=== PATIENT | female | born 1965 | race Caucasian/White ===

== ENCOUNTER 2019-01-04 14:52 | Observation (INO) | payer BC ==
--- NOTE | 2019-01-04 15:09 | EDM.PDOC ---
ED HPI GENERAL MEDICAL PROBLEM - General Chief Complaint: Respiratory Problem Stated Complaint: SOB Time Seen by Provider: 01/04/19 15:01 Source of Information: Reports: Patient History Limitations: Reports: No Limitations - History of Present Illness INITIAL COMMENTS - FREE TEXT/NARRATIVE: 53-year-old female presents to the ED due to gradually worsening shortness of breath on minimal exertion. She feels achy all over her bones hurt. She feels lightheaded dizzy upon standing. She has a productive cough since waking the yard about a week ago. She feels this makes her feel even more short of breath. Complains of intermittent headaches and sinus congestion. She is also menstruating very heavily.. Started around December 18 and is continued to fall heavily on a daily basis with clots. has a history of thrombocytopenia. Shows 100 platelets checked for a period of time. She states cough is nonproductive. Smoker. No history of asthma. Feels generally weak and fatigued. In regards to. She's had 3 periods in the last 6 months all were heavier than normal and she would be considered perimenopausal. She has not followed up with gynecology in this regard. Onset: Gradual Onset Date: 12/21/18 (Hospital progressively more short of breath over the last 2 weeks and weak and tired.) Duration: Week(s):, Getting Worse Location: Reports: Generalized, Other (Headaches shortness of breath on minimal exertion.) Quality: Reports: Other Severity: Moderate (Dyspnea on minimal exertion) Improves with: Reports: Rest Worsens with: Reports: Movement Context: Denies: Activity (Exertion even slight walking without stairs makes her short of breath and lightheaded.), Exercise, Lifting, Sick Contact, Trauma, Other Associated Symptoms: Reports: Cough, Loss of Appetite, Malaise, Shortness of Breath, Weakness, Other (Dizzy and lightheaded with standing.). Denies: No Other Symptoms, Confusion, Chest Pain, cough w sputum, Diaphoresis ( Nonproductive.), Fever/Chills, Headaches, Nausea/Vomiting, Rash, Seizure, Syncope Treatments ONLINE COMMUNICATIONS MANAGER: Reports: Other (see below) (None.) - Related Data Allergies Allergy/AdvReac Type Severity Reaction Status Date / Time No Known Allergies Allergy Verified 01/04/19 14:56 Home Meds: Home Meds Cyclobenzaprine [Flexeril] 5 mg PO Q8H PRN #15 tab 01/23/18 [Rx] Eltrombopag Olamine [Promacta] 75 mg PO DAILY 01/23/18 [History] Escitalopram [Lexapro] 20 mg PO DAILY 01/23/18 [History] traMADol [Ultram] 50 mg PO Q8H PRN #15 tab 01/23/18 [Rx] Past Medical History Musculoskeletal History: Reports: Back Pain, Chronic Other Musculoskeletal History: left hand surgery Hematologic History: Reports: Anemia, Other (See Below) Other Hematologic History: thrombocytopennia - Infectious Disease History Infectious Disease History: Reports: Chicken Pox - Past Surgical History Female Surgical History: Reports: Tubal Ligation, Other (See Below) Social & Family History - Tobacco Use Smoking Status *Q: Current Every Day Smoker Years of Tobacco use: 30 Packs/Tins Daily: 0.5 - Caffeine Use Caffeine Use: Reports: Coffee, Soda - Recreational Drug Use Recreational Drug Use: No - Living Situation & Occupation Living situation: Reports: Occupation: Employed ED ROS GENERAL - Review of Systems Review Of Systems: See Below Constitutional: Reports: Malaise, Weakness, Fatigue, Decreased Appetite. Denies : Fever, Chills HEENT: Reports: Sinus Problem Respiratory: Reports: Shortness of Breath (Sinus congestion lately.), Cough, Other. Denies: Wheezing, Pleuritic Chest Pain, Sputum, Hemoptysis ( Nonproductive and minimal) Cardiovascular: Reports: Dyspnea on Exertion, Lightheadedness. Denies: No Symptoms, Chest Pain, Blood Pressure Problem, Claudication, Edema, Orthopnea ( No orthopnea or PND), Palpitations Endocrine: Reports: Fatigue (Getting worse.) GI/Abdominal: Reports: Decreased Appetite : Reports: Irregular Menses (Patient is perimenopausal currently suffering significant menorrhagia with the last period lasting 2-1/2 weeks heavy with clots. This is her third. In the last 6 months that is been quite heavy.) Musculoskeletal: Reports: No Symptoms Skin: Reports: No Symptoms Neurological: Reports: Dizziness, Headache, Weakness (Lightheaded with standing localized weakness), Other Psychiatric: Reports: Depression (On medications for depression which seemed to be helping.) Hematologic/Lymphatic: Reports: Other (Has a history of thrombocytopenia.) Immunologic: Reports: No Symptoms ED EXAM, GENERAL - Physical Exam Exam: See Below Exam Limited By: No Limitations General Appearance: Alert, WD/WN, No Apparent Distress, Other (Initial O2 sats were 92% but did climb to 100% when at rest. Temperature is 37.1 resting heart rate 1 12/m. Respiratory rate of 16. BP 118/75.) Eye Exam: Bilateral Eye: Normal Inspection (Peripheral margins are moderately pallid bilaterally.) Ears: Normal TMs Throat/Mouth: Other (Test was swelling of the medial and spared turbinates bilaterally without) Head: Atraumatic, Normocephalic ( nasal polyps.) Neck: Normal Inspection, Supple, Non-Tender, Full Range of Motion. No: Carotid Bruit, Lymphadenopathy (L), Lymphadenopathy (R) Respiratory/Chest: No Respiratory Distress, Lungs Clear, Normal Breath Sounds, No Accessory Muscle Use Cardiovascular: No Edema, No Gallop, No Murmur, No Rub, Tachycardia (Resting heart rate of 1 16/m at the bedside.) Peripheral Pulses: 2+: Posterior Tibial (L), Posterior Tibial (R), Dorsalis Pedis (L), Dorsalis Pedis (R) GI/Abdominal: Normal Bowel Sounds, Soft, Non-Tender, No Organomegaly, No Abnormal Bruit, No Mass, Pelvis Stable, Other (Only surgeries that of tubal ligation.) Back Exam: Normal Inspection, Full Range of Motion. No: CVA Tenderness (L), CVA Tenderness (R) Extremities: Normal Inspection, Normal Range of Motion, Non-Tender, No Pedal Edema Neurological: Alert, Oriented, CN II-XII Intact, Normal Cognition Psychiatric: Anxious Skin Exam: Warm, Dry, Intact, Normal Color, No Rash, Other (Patient is tanning and therefore obscures any pallor of the skin. Only her blood for margins are pallid) EKG INTERPRETATION EKG Date: 01/04/19 Time: 15:22 Rhythm: NSR Rate (Beats/Min): 75 [place]: Normal P-Wave: Present (Borderline short CA interval.) QRS: Other (Initial poor R-wave progression decreased voltage precordial leads due to thick chest.) ST-T: Normal QT: Normal EKG Interpretation Comments: ECG. Course - Vital Signs Last Recorded V/S: Last Vital Signs Temp 37.1 C 01/04/19 18:25 Pulse 78 01/04/19 18:25 Resp 16 01/04/19 18:25 BP 127/79 01/04/19 18:25 Pulse Ox 99 01/04/19 15:37 - Orders/Labs/Meds Orders: Active Orders 24 hr Category Date Time Status EKG Documentation Completion [RC] STAT Care 01/04/19 15:10 Active RT Aerosol Therapy [RC] ASDIRECTED Care 01/04/19 15:10 Active PACKED CELLS [RED BLOOD CELLS LP] [BBK] Stat Lab 01/04/19 15:58 Results TYPE AND SCREEN [BBK] Stat Lab 01/04/19 15:58 Results Dextrose 5%-0.9% NaCl [Dextrose 5%-Normal Saline] 1,000 Med 01/04/19 15:15 Active ml IV ASDIRECTED Magnesium Sulfate/Water [Magnesium Sulfate in Water Med 01/04/19 17:30 Active Premix] 2 gm Premix Bag 1 bag IV Q1H Transfuse PRBC [Transfuse Red Blood Cells] [COMM] Stat Oth 01/04/19 16:44 Ordered Medication Orders Dextrose/Sodium Chloride (Dextrose 5%-Normal Saline) 1,000 mls @ 500 mls/hr IV ASDIRECTED [facility] Last Admin: 01/04/19 15:22 Dose: 500 mls/hr Magnesium Sulfate 2 gm/ Premix 50 mls @ 25 mls/hr IV Q1H [facility] Stop: 01/04/19 19:29 Last Admin: 01/04/19 17:37 Dose: 25 mls/hr Sodium Chloride (Normal Saline) 250 mls @ 25 mls/hr IV ASDIRECTED [facility] Medroxyprogesterone Acetate (Provera) 10 mg PO BID [facility] Labs: Laboratory Tests 01/04/19 01/04/19 01/04/19 Range/Units 15:20 15:20 15:58 WBC 6.69 (3.98-10.04) K/mm3 RBC 1.56 L (3.98-5.22) M/mm3 Hgb 5.0 L* D (11.2-15.7) gm/dl Hct 17.0 L (34.1-44.9) % MCV 109.0 H D (79.4-94.8) fl MCH 32.1 (25.6-32.2) pg MCHC 29.4 L (32.2-35.5) g/dl RDW Std Deviation 67.1 H (36.4-46.3) fL Plt Count 21 L* (182-369) K/mm3 MPV 12.4 H (9.4-12.3) fl Neut % (Auto) 76.8 H (34.0-71.1) % Lymph % (Auto) 15.2 L (19.3-51.7) % Ross % (Auto) 7.5 (4.7-12.5) % Eos % (Auto) 0.1 L (0.7-5.8) Baso % (Auto) 0.1 (0.1-1.2) % Neut # (Auto) 5.13 (1.56-6.13) K/mm3 Lymph # (Auto) 1.02 L (1.18-3.74) K/mm3 Ross # (Auto) 0.50 H (0.24-0.36) K/mm3 Eos # (Auto) 0.01 L (0.04-0.36) K/mm3 Baso # (Auto) 0.01 (0.01-0.08) K/mm3 Manual Slide Review Abnormal smear Sodium 136 (136-145) mEq/L Potassium 3.9 (3.5-5.1) mEq/L Chloride 103 (98-107) mEq/L Carbon Dioxide 22 (21-32) mEq/L Anion Gap 14.9 (5-15) BUN 9 (7-18) mg/dL Creatinine 1.0 (0.55-1.02) mg/dL Est Cr Clr Drug Dosing 59.89 mL/min Estimated GFR (MDRD) 58 (>60) mL/min BUN/Creatinine Ratio 9.0 L (14-18) Glucose 122 H (74-106) mg/dL Calcium 8.4 L (8.5-10.1) mg/dL Magnesium 1.5 L (1.8-2.4) mg/dl Iron (50-170) ug/dL TIBC (100-400) ug/dL % Saturation (20-55) % Transferrin (202-364) mg/dL Ferritin (8-252) ng/ml Total Bilirubin 0.3 (0.2-1.0) mg/dL AST 15 (15-37) U/L ALT 20 (14-59) U/L Alkaline Phosphatase 52 (46-116) U/L C-Reactive Protein < 0.2 (<1.0) mg/dL NT-Pro-B Natriuret Pep 92 (0-125) pg/mL Total Protein 6.4 (6.4-8.2) g/dl Albumin 3.1 L (3.4-5.0) g/dl Globulin 3.3 gm/dL Albumin/Globulin Ratio 0.9 L (1-2) Blood Type Gel Antibody Screen Crossmatch 01/04/19 01/04/19 Range/Units 15:58 15:58 WBC (3.98-10.04) K/mm3 RBC (3.98-5.22) M/mm3 Hgb (11.2-15.7) gm/dl Hct (34.1-44.9) % MCV (79.4-94.8) fl MCH (25.6-32.2) pg MCHC (32.2-35.5) g/dl RDW Std Deviation (36.4-46.3) fL Plt Count (182-369) K/mm3 MPV (9.4-12.3) fl Neut % (Auto) (34.0-71.1) % Lymph % (Auto) (19.3-51.7) % Ross % (Auto) (4.7-12.5) % Eos % (Auto) (0.7-5.8) Baso % (Auto) (0.1-1.2) % Neut # (Auto) (1.56-6.13) K/mm3 Lymph # (Auto) (1.18-3.74) K/mm3 Ross # (Auto) (0.24-0.36) K/mm3 Eos # (Auto) (0.04-0.36) K/mm3 Baso # (Auto) (0.01-0.08) K/mm3 Manual Slide Review Sodium (136-145) mEq/L Potassium (3.5-5.1) mEq/L Chloride (98-107) mEq/L Carbon Dioxide (21-32) mEq/L Anion Gap (5-15) BUN (7-18) mg/dL Creatinine (0.55-1.02) mg/dL Est Cr Clr Drug Dosing mL/min Estimated GFR (MDRD) (>60) mL/min BUN/Creatinine Ratio (14-18) Glucose (74-106) mg/dL Calcium (8.5-10.1) mg/dL Magnesium (1.8-2.4) mg/dl Iron 35 L (50-170) ug/dL TIBC 286 (100-400) ug/dL % Saturation 12 L (20-55) % Transferrin 229 (202-364) mg/dL Ferritin 106 (8-252) ng/ml Total Bilirubin (0.2-1.0) mg/dL AST (15-37) U/L ALT (14-59) U/L Alkaline Phosphatase (46-116) U/L C-Reactive Protein (<1.0) mg/dL NT-Pro-B Natriuret Pep (0-125) pg/mL Total Protein (6.4-8.2) g/dl Albumin (3.4-5.0) g/dl Globulin gm/dL Albumin/Globulin Ratio (1-2) Blood Type O NEGATIVE Gel Antibody Screen Negative Crossmatch See Detail Meds: Medications Generic Name Dose Route Start Last Admin Trade Name Freq PRN Reason Stop Dose Admin Dextrose/Sodium Chloride 1,000 mls @ 500 mls/hr 01/04/19 15:15 01/04/19 15:22 Dextrose 5%-Normal Saline IV 500 mls/hr ASDIRECTED RHIANNON Administration Magnesium Sulfate 2 gm/ Premix 50 mls @ 25 mls/hr 01/04/19 17:30 01/04/19 17: 37 IV 01/04/19 19:29 25 mls/hr Q1H RHIANNON Administration Sodium Chloride 250 mls @ 25 mls/hr 01/04/19 18:00 Normal Saline IV ASDIRECTED R[facility]ANNON Medroxyprogesterone Acetate 10 mg 01/04/19 19:00 Provera PO BID RHIANNON Discontinued Medications Generic Name Dose Route Start Last Admin Trade Name Freq PRN Reason Stop Dose Admin Albuterol/Ipratropium 3 ml 01/04/19 15:10 01/04/19 15:37 Duoneb 3.0-0.5 Mg/3 Ml NEB 01/04/19 15:11 3 ml ONETIME ONE Administration - Radiology Interpretation Free Text/Narrative:: 53-year-old female presents the ED for evaluation of gradually worsening dyspnea over the last 2-3 weeks. This is associated the same time is very heavy menstrual bleeding or menorrhagia with periods lasting over 2 and half weeks with clots. She is considered perimenopausal at age 53. She's had 3 periods in the last 6 months however. All of them been fairly heavy. She has carries a history of thrombocytopenia. She has not had a plan to check for a period of time. She states that she seemed to do develop shortness of breath after raking leaves for a couple of days with congestion in her throat and gradually worsening dyspnea. Cough is nonproductive. She is a cigarette smoker. He has not noticed any wheezing or rattling. No associated fever or chills. She is weak when she does anything. Standing up gives her worsening headaches. He states all of her bone seem to ache. Clinically she is showing some signs of mild anemia likely with a hemoglobin of around 10. Resting heart rate was 102-1 16/m at the bedside. O2 sats when she entered her room where down to 92% but quickly came up to 100% at rest. Plan she will have a chest x-ray carried out and routine labs carried out . Suspect anemia is her major cause of current illness. - Re-Assessments/Exams Free Text/Narrative Re-Assessment/Exam: 01/04/19 16:38 Labs reveal a normal white count at 6.69. The auto differential shows 77% neutrophils. Hemoglobin is very low at 5.0 with hematocrit of 17. MCV is elevated 109.0. Platelet count is 21,000. Patient is known to suffer from chronic thrombocytopenia. She's had low platelet counts for greater than 5 years. Sodium is 136 with a potassium of 3.9 chloride is 102 bicarbonate 22. Anion gap is 14.9. BUN is 9 with a creatinine of 1.0. GFR is greater than 58. Glucose is 122 calcium is 8.4 magnesium low at 1.5. Liver function otherwise normal. C-reactive protein less than 0.2. Total protein is 6.4 with an albumin fraction of 3.1. This is slightly low.. Plan I will now order her serum iron ferritin and transferrin levels. He may be a candidate for intravenous dextran iron well she is here to improve her iron stores since she is so anemic. The menorrhagia is contributing to the chronic anemia and of course with a low platelet count she's not easily a candidate for surgery. Because she is perimenopausal I will discuss case with Dr. Galaviz with was automotive parts salesperson. She needs essentially an ultrasound of her uterus to give us his ideal shape size and leiomyomas. Some give us an idea about the endometrial stripe. Ideally she needs a endometrial biopsy at some point time to help determine the best approach to managing her menorrhagia. I discussed the case with automotive parts salesperson hospitalist Dr. Do and she will be admitted for observation overnight to receive 5 units of packed cells to improve her hemoglobin to be greater than 9. Her magnesium slightly low and I will therefore give her 2 g of magnesium intravenously as well as. 01/04/19 18:49 transvaginal ultrasound has been completed and Dr. Ellington is seen the patient and examined her in the ED. Appears that she probably does have a fibroid on the superior surface of the fundus of the uterus. Recommendation therefore be to have the uterus removed surgically. Of course this will have to be done in a larger facility where platelets are available and the patient was soap raised. In the meantime during admission we will start her on Provera 10 mg once daily in an effort to help reduce her bleeding per vagina. He will plan to do an endometrial biopsy in the next day or so. Departure - Departure Time of Disposition: 18:50 Disposition: Refer to Observation Condition: Fair Clinical Impression: Perimenopausal menorrhagia, Chronic idiopathic thrombocytopenia, Hypomagnesemia Anemia Qualifiers: Anemia type: iron deficiency Iron deficiency anemia type: chronic blood loss Qualified Code(s): D50.0 - Iron deficiency anemia secondary to blood loss ( chronic) - Discharge Information *PRESCRIPTION DRUG MONITORING PROGRAM REVIEWED*: Not Applicable *COPY OF PRESCRIPTION DRUG MONITORING REPORT IN PATIENT LISSET: Not Applicable - My Orders Last 24 Hours: My Active Orders 01/04/19 15:10 EKG Documentation Completion [RC] STAT RT Aerosol Therapy [RC] ASDIRECTED 01/04/19 15:15 Dextrose 5%-0.9% NaCl [Dextrose 5%-Normal Saline] 1,000 ml IV ASDIRECTED 01/04/19 15:58 PACKED CELLS [RED BLOOD CELLS LP] [BBK] Stat TYPE AND SCREEN [BBK] Stat 01/04/19 16:44 Transfuse PRBC [Transfuse Red Blood Cells] [COMM] Stat 01/04/19 17:30 Magnesium Sulfate/Water [Magnesium Sulfate in Water Premix] 2 gm Premix Bag 1 bag IV Q1H - Assessment/Plan Last 24 Hours: My Active Orders 01/04/19 15:10 EKG Documentation Completion [RC] STAT RT Aerosol Therapy [RC] ASDIRECTED 01/04/19 15:15 Dextrose 5%-0.9% NaCl [Dextrose 5%-Normal Saline] 1,000 ml IV ASDIRECTED 01/04/19 15:58 PACKED CELLS [RED BLOOD CELLS LP] [BBK] Stat TYPE AND SCREEN [BBK] Stat 01/04/19 16:44 Transfuse PRBC [Transfuse Red Blood Cells] [COMM] Stat 01/04/19 17:30 Magnesium Sulfate/Water [Magnesium Sulfate in Water Premix] 2 gm Premix Bag 1 bag IV Q1H
[2019-01-04] MEDS ORDERED: Albuterol/Ipratropium 3.0-0.5 MG/3 ML Neb Soln NEB ONE (15:10)
[2019-01-04] MEDS ORDERED: Dextrose 5%-0.9% NaCl 1,000 ML IV SCH (15:15)
--- NOTE | 2019-01-04 15:37 | CR ---
Chest: Portable view of the chest was obtained. Comparison: No prior chest x-rays are available. Heart size and mediastinum are normal. Lungs are clear. Bony structures are grossly intact. Impression: 1. Nothing acute is seen on portable chest x-ray. Diagnostic code #1
[2019-01-04] MEDS: Magnesium Sulfate/Water 2 GM in Premix Bag 1 BAG IV SCH ×2 (17:37→20:48)
--- NOTE | 2019-01-04 17:43 | US ---
Pelvic ultrasound: Multiple real-time images were obtained transvaginally. Comparison: No previous pelvic imaging is available. Findings: Uterus is anteverted. Endometrium is slightly heterogeneous and is increased in thickness at 2.6 cm. There is a fundal fibroid being noted which measures 2.7 cm in greatest measurement. No additional myometrial abnormality is identified. Right ovary shows a 2.0 cm simple cyst which is felt to be physiologic. Left ovary shows a hypoechoic area most likely due to collapsing hemorrhagic cyst measuring 2.8 cm. No free fluid is seen. Measurements: Uterus: Length 11.7 cm, AP height 6.5 cm, transverse width 6.3 cm Right ovary: 3.2 x 2.1 x 2.2 cm Left ovary: 4.1 x 2.8 x 3.0 cm Impression: 1. Heterogeneous endometrial stripe with increased thickness at 2.6 cm. 2. Hypoechoic area within the left ovary measuring 2.8 cm. As mentioned above, this most likely represents a collapsing hemorrhagic cyst although given the patient's age, recommend repeat study in 3-4 months to make sure this finding resolves. 3. Small fundal fibroid. Diagnostic code #3
[2019-01-04] MEDS ORDERED: Sodium Chloride 0.9% 250 ML IV SCH (18:00)
--- NOTE | 2019-01-04 20:00 | PCM.CONS ---
H&P History of Present Illness - General Date of Service: 01/04/19 Admit Problem/Dx: Admission Diagnosis/Problem Admission Diagnosis/Problem Perimenopausal menorrhagia Source of Information: Patient History Limitations: Reports: No Limitations - History of Present Illness Initial Comments - Free Text/Narative: Joselyn Escoto is a 53 year old female who presented to the ED for evaluation of shortness of breath and lightheadedness that had been getting progressively worse over the last several weeks. She reports that she started to have worsening of her lightheadedness today and had to sit down while she was combing her hair. She also has been having significant shortness of breath with ambulation. She reports that she has been having heavy menstrual bleeding for the last 2.5 weeks. LMP was 12/19/2018 and she has had ongoing bleeding since then. She reports that she is changing a regular tampon every 20-30 minutes at times and is also passing large blood clots that she says are the size of a baseball at times. She reports that she has been having increasing amount of cramping with her bleeding as well. She states that today the bleeding has slowed down and she is only having to change a tampon every 2-4 hours. She states that for the last 6 months her cycles have been somewhat irregular and are occurring every other month at this point. The 2 cycles prior to this were normal and only lasted about a week at a time. She also was not having is heavy bleeding with her cycles where she would only change a pad every couple of hours. Her bleeding was minimal with those previous cycles. She has not had any evaluation for this abnormal bleeding and has not been evaluated by a [facility] provider in a number of years. Onset of Symptoms: Reports: Gradual Symptom Onset Date: 12/10/18 Duration of Symptoms: Reports: Constant, Getting Worse Location: Reports: Pelvis Improves with: Reports: None - Related Data Allergies/Adverse Reactions: Allergies Allergy/AdvReac Type Severity Reaction Status Date / Time almond Allergy Hives Verified 01/04/19 19:03 poppyseed oil Allergy Hives Verified 01/04/19 19:04 Home Medications: Home Meds Escitalopram [Lexapro] 20 mg PO DAILY 01/23/18 [History] Past Medical History Musculoskeletal History: Reports: Back Pain, Chronic Other Musculoskeletal History: left hand surgery Hematologic History: Reports: Anemia, Other (See Below) Other Hematologic History: thrombocytopennia - Infectious Disease History Infectious Disease History: Reports: Chicken Pox - Past Surgical History Female Surgical History: Reports: Tubal Ligation, Other (See Below) Social & Family History - Tobacco Use Smoking Status *Q: Current Every Day Smoker Years of Tobacco use: 30 Packs/Tins Daily: 0.5 - Tobacco Core Measures Tobacco Use/Smoking Within Last 30 Days: Yes Smoking Frequency Within Last 30 Days: Reports: Five or More Cigarettes Per Day Desires Tobacco Cessation Medication: Refuses FDA Approved Med - Caffeine Use Caffeine Use: Reports: Coffee, Soda - Alcohol Use Alcohol Use History: Yes - Recreational Drug Use Recreational Drug Use: No - Living Situation & Occupation Living situation: Reports: Occupation: Employed H&P Review of Systems - Review of Systems: Review Of Systems: See Below General: Reports: Weakness, Fatigue Pulmonary: Reports: Shortness of Breath Cardiovascular: Denies: Chest Pain, Palpitations, Dyspnea on Exertion, Orthopnea Gastrointestinal: Denies: Abdominal Pain, Bloody Stool, Constipation, Diarrhea Genitourinary: Reports: Other (Abnormal uterine bleeding with menorrhagia and dysmenorrhea). Denies: Dysuria, Frequency, Burning, Pain, Urgency Exam - Exam Exam: See Below - Vital Signs Vital Signs: Last Vital Signs Temp 37.1 C 01/04/19 18:25 Pulse 78 01/04/19 18:25 Resp 16 01/04/19 18:25 BP 127/79 01/04/19 18:25 Pulse Ox 99 01/04/19 15:37 Weight: 81.647 kg - Exam General: Alert, Oriented HEENT: Conjunctiva Clear, EOMI Neck: Supple, Trachea Midline Lungs: Normal Respiratory Effort Cardiovascular: Regular Rate GI/Abdominal Exam: Soft, Non-Tender, No Distention. No: Guarding, Rigid, Rebound (Female) Exam: Normal External Exam, Enlarged Uterus (5-6 week size, anteverted, fundal fibroid present on bimanual exam.), Vaginal Bleeding (Small amount on bimanual exam). No: Adnexal Mass, Adnexal Tenderness, Uterine Tenderness Extremities: No Pedal Edema Skin: Warm, Dry, Intact Psychiatric: Alert, Normal Affect, Normal Mood - Patient Data Lab Results Last 24 hrs: Laboratory Results - last 24 hr 10/01/04/19 01/04/19 Range/Units 15:20 15:20 15:58 WBC 6.69 (3.98-10.04) K/mm3 RBC 1.56 L (3.98-5.22) M/mm3 Hgb 5.0 L* D (11.2-15.7) gm/dl Hct 17.0 L (34.1-44.9) % MCV 109.0 H D (79.4-94.8) fl MCH 32.1 (25.6-32.2) pg MCHC 29.4 L (32.2-35.5) g/dl RDW Std Deviation 67.1 H (36.4-46.3) fL Plt Count 21 L* (182-369) K/mm3 MPV 12.4 H (9.4-12.3) fl Neut % (Auto) 76.8 H (34.0-71.1) % Lymph % (Auto) 15.2 L (19.3-51.7) % [place] % (Auto) 7.5 (4.7-12.5) % Eos % (Auto) 0.1 L (0.7-5.8) Baso % (Auto) 0.1 (0.1-1.2) % Neut # (Auto) 5.13 (1.56-6.13) K/mm3 Lymph # (Auto) 1.02 L (1.18-3.74) K/mm3 [place] # (Auto) 0.50 H (0.24-0.36) K/mm3 Eos # (Auto) 0.01 L (0.04-0.36) K/mm3 Baso # (Auto) 0.01 (0.01-0.08) K/mm3 Manual Slide Review Abnormal smear Sodium 136 (136-145) mEq/L Potassium 3.9 (3.5-5.1) mEq/L Chloride 103 (98-107) mEq/L Carbon Dioxide 22 (21-32) mEq/L Anion Gap 14.9 (5-15) BUN 9 (7-18) mg/dL Creatinine 1.0 (0.55-1.02) mg/dL Est Cr Clr Drug Dosing 59.89 mL/min Estimated GFR (MDRD) 58 (>60) mL/min BUN/Creatinine Ratio 9.0 L (14-18) Glucose 122 H (74-106) mg/dL Calcium 8.4 L (8.5-10.1) mg/dL Magnesium 1.5 L (1.8-2.4) mg/dl Iron (50-170) ug/dL TIBC (100-400) ug/dL % Saturation (20-55) % Transferrin (202-364) mg/dL Ferritin (8-252) ng/ml Total Bilirubin 0.3 (0.2-1.0) mg/dL AST 15 (15-37) U/L ALT 20 (14-59) U/L Alkaline Phosphatase 52 (46-116) U/L C-Reactive Protein < 0.2 (<1.0) mg/dL NT-Pro-B Natriuret Pep 92 (0-125) pg/mL Total Protein 6.4 (6.4-8.2) g/dl Albumin 3.1 L (3.4-5.0) g/dl Globulin 3.3 gm/dL Albumin/Globulin Ratio 0.9 L (1-2) Blood Type Gel Antibody Screen Crossmatch 01/04/19 01/04/19 Range/Units 15:58 15:58 WBC (3.98-10.04) K/mm3 RBC (3.98-5.22) M/mm3 Hgb (11.2-15.7) gm/dl Hct (34.1-44.9) % MCV (79.4-94.8) fl MCH (25.6-32.2) pg MCHC (32.2-35.5) g/dl RDW Std Deviation (36.4-46.3) fL Plt Count (182-369) K/mm3 MPV (9.4-12.3) fl Neut % (Auto) (34.0-71.1) % Lymph % (Auto) (19.3-51.7) % [place] % (Auto) (4.7-12.5) % Eos % (Auto) (0.7-5.8) Baso % (Auto) (0.1-1.2) % Neut # (Auto) (1.56-6.13) K/mm3 Lymph # (Auto) (1.18-3.74) K/mm3 [place] # (Auto) (0.24-0.36) K/mm3 Eos # (Auto) (0.04-0.36) K/mm3 Baso # (Auto) (0.01-0.08) K/mm3 Manual Slide Review Sodium (136-145) mEq/L Potassium (3.5-5.1) mEq/L Chloride (98-107) mEq/L Carbon Dioxide (21-32) mEq/L Anion Gap (5-15) BUN (7-18) mg/dL Creatinine (0.55-1.02) mg/dL Est Cr Clr Drug Dosing mL/min Estimated GFR (MDRD) (>60) mL/min BUN/Creatinine Ratio (14-18) Glucose (74-106) mg/dL Calcium (8.5-10.1) mg/dL Magnesium (1.8-2.4) mg/dl Iron 35 L (50-170) ug/dL TIBC 286 (100-400) ug/dL % Saturation 12 L (20-55) % Transferrin 229 (202-364) mg/dL Ferritin 106 (8-252) ng/ml Total Bilirubin (0.2-1.0) mg/dL AST (15-37) U/L ALT (14-59) U/L Alkaline Phosphatase (46-116) U/L C-Reactive Protein (<1.0) mg/dL NT-Pro-B Natriuret Pep (0-125) pg/mL Total Protein (6.4-8.2) g/dl Albumin (3.4-5.0) g/dl Globulin gm/dL Albumin/Globulin Ratio (1-2) Blood Type O NEGATIVE Gel Antibody Screen Negative Crossmatch See Detail Result Diagrams: 01/04/19 15:20 01/04/19 15:58 Imaging Impressions Last 24 hrs: Transvaginal ultrasound Findings: Uterus is anteverted. The endometrium is slightly heterogeneous and is increased in thickness at 2.6 cm. There is a fundal fibroid being noted which measures 2.7 cm in greatest measurement. No additional myometrial abnormality is identified. Next and right ovary shows a 2.0 cm simple cyst which is felt to be physiologic. The left ovary shows a hypoechoic area most likely due to collapsing hemorrhagic cyst measuring 2.8 cm. No free fluid seen. Measurements Uterus: Length 11.7 cm, AP height 6.5 cm, transverse with 6.3 cm Right ovary: 3.2 x 2.1 x 2.2 cm Left ovary: 4.1 x 2.8 x 3.0 cm Impression: 1. Heterogeneous endometrial stripe with increased thickness at 2.6 and a venous 2. Hypoechoic area within the left ovary measuring 2.8 cm. As mentioned above , this most likely represents a collapsing hemorrhagic cyst although given the patient's age, recommend repeat study in 3-4 months to make sure this finding resolves. 3. A small fundal fibroid. Consult PN Assessment/Plan Procedures: Procedures AG DETECT NOS IA MULT (02/22/16) ANTINUCLEAR ANTIBODIES (01/16/16) ASSAY OF FERRITIN (12/07/15) ASSAY OF IRON (02/22/16) ASSAY OF TRANSFERRIN (02/22/16) ASSAY THYROID STIM HORMONE (12/07/15) AUTOMATED PLATELET COUNT (01/17/16) C DIFF AMPLIFIED PROBE (12/08/15) C-REACTIVE PROTEIN (02/22/16) COMPLETE CBC AUTOMATED (02/28/16) COMPLETE CBC W/AUTO DIFF WBC (02/22/16) COMPREHEN METABOLIC PANEL (02/22/16) CRYPTOSPORIDIUM AG IA (12/08/15) CT HEAD/BRAIN W/O DYE (02/22/16) CT NECK SPINE W/O DYE (02/22/16) EMERGENCY DEPT VISIT (01/23/18) EMERGENCY DEPT VISIT (02/22/16) GIARDIA AG IA (12/08/15) HELICOBACTER PYLORI ANTIBODY (12/07/15) LEUKOCYTE ASSESSMENT FECAL (12/08/15) OCCULT BLD FECES 1-3 TESTS (12/08/15) ROUTINE VENIPUNCTURE (02/28/16) STOOL CULTR AEROBIC BACT EA (12/08/15) THER/PROPH/DIAG INJ SC/IM (01/23/18) VANOMYCIN DNA AMP PROBE (12/08/15) X-RAY EXAM L-S SPINE 2/3 VWS (01/23/18) X-RAY EXAM OF PELVIS (01/23/18) (1) Anemia SNOMED Code(s): 334884567 Code(s): D64.9 - ANEMIA, UNSPECIFIED Current Visit: Yes Qualifiers: Anemia type: iron deficiency Iron deficiency anemia type: chronic blood loss Qualified Code(s): D50.0 - Iron deficiency anemia secondary to blood loss (chronic) (2) Chronic idiopathic thrombocytopenia SNOMED Code(s): 37809079 Code(s): D69.3 - IMMUNE THROMBOCYTOPENIC PURPURA Current Visit: Yes (3) Perimenopausal menorrhagia SNOMED Code(s): 061183082, 560066901 Code(s): N92.4 - EXCESSIVE BLEEDING IN THE PREMENOPAUSAL PERIOD Current Visit: Yes Problem List Initiated/Reviewed/Updated: Yes My Orders Last 24 Hours: My Active Orders 01/04/19 21:00 medroxyPROGESTERone [Provera] 10 mg PO BID Requesting Provider: Zoltan Preciado MD Date Consult Requested: 01/04/19 Reason for Consult: Abnormal uterine bleeding with severe anemia Patient History Reviewed: Yes Admission H&P Reviewed: Yes Consult Result/Summary:: * Patient with symptomatic anemia with a hemoglobin of 5.0 in the setting of abnormal uterine bleeding with menorrhagia and dysmenorrhea. * Patient is likely in a perimenopausal state given her irregular menstrual cycles that are occurring every other month at [facility] time. * Patient is being admitted for blood transfusion given her significant symptomatic anemia * Patient had transvaginal ultrasound done today that showed uterine fibroid measuring 2.7 cm in greatest diameter. It is possible that this could be causing her abnormal bleeding. Patient also had thickened endometrial stripe at 2.6 cm. * Due to thickened endometrial stripe patient will need a endometrial biopsy and recommended for this to be done as an outpatient. Patient reports that she is also not had a Pap smear performed in a number of years and would recommend for this to be done at that time as well. * Patient should be treated with Provera 10 mg orally twice daily and could consider increasing dose to 20 mg orally twice daily to control her bleeding. Due to patient's history of tobacco use with 0.5 PPD at this time I would not recommend use of estrogen or estrogen containing medications due to increased risk of DVT. * Discussed with patient that because of this fibroid her options for control may be somewhat limited. Discussed that options could include ongoing hormonal management versus endometrial ablation versus definitive surgical management with hysterectomy. 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 Patient could consider also having a uterine artery embolization however this procedure would not be able to be performed at our facility. Patient would likely need to have her hysterectomy performed at a facility with higher acuity care and larger blood bank available because of her thrombocytopenia as well. Thank you for allowing me to participate in this patient's care. If there is any additional recommendations needed please feel free to contact me as needed. Guillaume Ellington M.D. 8:16 PM 01/04/2019 Notified Requestor: Yes Time Spent (in minutes): 45
[2019-01-04] MEDS ORDERED: Ondansetron 4 MG/2 ML SDV IV PRN (20:15)
[2019-01-04] MEDS ORDERED: Temazepam 7.5 MG Cap PO PRN (20:15)
--- NOTE | 2019-01-04 20:25 | PCM.HP.2 ---
H&P History of Present Illness - General Date of Service: 01/04/19 Admit Problem/Dx: Admission Diagnosis/Problem Admission Diagnosis/Problem Perimenopausal menorrhagia - History of Present Illness Initial Comments - Free Text/Narative: 53-year-old perimenopausal female with a history of ITP treated with eltrombopag in the past presents to the emergency room with complaints of chest burning, increased fatigue, weakness, and headache over the last week. Today it worsened and she developed palpitations and shortness of breath. She was unable to stand and [place] is a fatigue and had difficulty walking through the store for 5 minutes. Last menstrual period started 12/19/2018. She states she has been on her menstrual cycle for approximately 2-1/2 weeks and it has been unusually heavy. She is changing a regular tampon every 20-30 minutes is also passing large blood clots. She also has had increasing cramping and bleeding as well. She has had some decreased bleeding today and has only gone through a tampon every 2-4 hours. She is only had a menstrual cycle approximately 3 times over the last 6 months in the previous 2 cycles were normal and last approximately 1 week. She has not been evaluated by [facility]. In the emergency room she was found to have a hemoglobin of 5.0. Her platelet count was 21,000. I spoke with Dr. Hassan her automotive brake specialist who stated that that is not a bad platelet count for her since she has been off of her eltrombopag. She states that a couple of months ago her platelet count was 14,000. Other pertinent positives were magnesium 1.5, iron 35, percent saturation 12, total iron binding capacity of 286. She had a pelvic ultrasound performed and the first unit of blood was started. - Related Data Allergies/Adverse Reactions: Allergies Allergy/AdvReac Type Severity Reaction Status Date / Time almond Allergy Hives Verified 01/04/19 19:03 poppyseed oil Allergy Hives Verified 01/04/19 19:04 Home Medications: Home Meds Escitalopram [Lexapro] 20 mg PO DAILY 01/23/18 [History] Iron Polysaccharides Complex [Ferrex 150] 130 mg PO DAILY 01/04/19 [History] Multivitamin with Minerals [Multiple Vitamin] 1 tab PO DAILY 01/04/19 [History] Past Medical History Respiratory History: Reports: Bronchitis, Recurrent Other OB/BYN History: tubes tied, normal , abnormal periods entire life Musculoskeletal History: Reports: Back Pain, Chronic Other Musculoskeletal History: left hand surgery Psychiatric History: Reports: Anxiety Hematologic History: Reports: Anemia, Other (See Below) Other Hematologic History: thrombocytopennia - Infectious Disease History Infectious Disease History: Reports: Chicken Pox - Past Surgical History Female Surgical History: Reports: Tubal Ligation, Other (See Below) Social & Family History - Family History Family Medical History: Noncontributory - Tobacco Use Smoking Status *Q: Current Every Day Smoker Years of Tobacco use: 30 Packs/Tins Daily: 0.5 Second Hand Smoke Exposure: No - Caffeine Use Caffeine Use: Reports: Coffee, Soda Other Caffeine Use: 1 cup/day - Recreational Drug Use Recreational Drug Use: No - Living Situation & Occupation Living situation: Reports: Occupation: Employed H&P Review of Systems - Review of Systems: Review Of Systems: ROS reveals no pertinent complaints other than HPI. Exam - Exam Exam: See Below - Vital Signs Vital Signs: Last Vital Signs Temp 98.8 F 01/04/19 18:25 Pulse 78 01/04/19 18:25 Resp 16 01/04/19 18:25 BP 127/79 01/04/19 18:25 Pulse Ox 99 01/04/19 15:37 Weight: 180 lb - Exam Quality Assessment: No: Supplemental Oxygen General: Alert, Oriented, 4 HEENT: Conjunctiva Clear, EACs Clear, EOMI, Hearing Intact, Mucosa Moist & [place] , Nares Patent, Normal Nasal Septum, Posterior Pharynx Clear, TMs Clear, Other ( Conjunctiva pale), PERRLA Neck: Supple, Trachea Midline, 2 Lungs: Clear to Auscultation, Normal Respiratory Effort Cardiovascular: Regular Rate, Regular Rhythm GI/Abdominal Exam: Normal Bowel Sounds, Soft, Non-Tender, No Organomegaly, No Distention, No Abnormal Bruit, No Mass Extremities: Normal Inspection, Normal Range of Motion, Non-Tender, No Pedal Edema, Normal Capillary Refill Skin: Warm, Dry, Intact Neuro Extensive - Mental Status: Alert, Oriented x3, Normal Mood/Affect, Normal Cognition, Memory Intact Neuro Extensive - Motor, Sensory, Reflexes: CN II-XII Intact Psychiatric: Alert, Normal Affect, Normal Mood - Patient Data Lab Results Last 24 hrs: Laboratory Results - last 24 hr 01/04/19 01/04/19 01/04/19 Range/Units 15:20 15:20 15:58 WBC 6.69 (3.98-10.04) K/mm3 RBC 1.56 L (3.98-5.22) M/mm3 Hgb 5.0 L* D (11.2-15.7) gm/dl Hct 17.0 L (34.1-44.9) % MCV 109.0 H D (79.4-94.8) fl MCH 32.1 (25.6-32.2) pg MCHC 29.4 L (32.2-35.5) g/dl RDW Std Deviation 67.1 H (36.4-46.3) fL Plt Count 21 L* (182-369) K/mm3 MPV 12.4 H (9.4-12.3) fl Neut % (Auto) 76.8 H (34.0-71.1) % Lymph % (Auto) 15.2 L (19.3-51.7) % [place] % (Auto) 7.5 (4.7-12.5) % Eos % (Auto) 0.1 L (0.7-5.8) Baso % (Auto) 0.1 (0.1-1.2) % Neut # (Auto) 5.13 (1.56-6.13) K/mm3 Lymph # (Auto) 1.02 L (1.18-3.74) K/mm3 [place] # (Auto) 0.50 H (0.24-0.36) K/mm3 Eos # (Auto) 0.01 L (0.04-0.36) K/mm3 Baso # (Auto) 0.01 (0.01-0.08) K/mm3 Manual Slide Review Abnormal smear Sodium 136 (136-145) mEq/L Potassium 3.9 (3.5-5.1) mEq/L Chloride 103 (98-107) mEq/L Carbon Dioxide 22 (21-32) mEq/L Anion Gap 14.9 (5-15) BUN 9 (7-18) mg/dL Creatinine 1.0 (0.55-1.02) mg/dL Est Cr Clr Drug Dosing 59.89 mL/min Estimated GFR (MDRD) 58 (>60) mL/min BUN/Creatinine Ratio 9.0 L (14-18) Glucose 122 H (74-106) mg/dL Calcium 8.4 L (8.5-10.1) mg/dL Magnesium 1.5 L (1.8-2.4) mg/dl Iron (50-170) ug/dL TIBC (100-400) ug/dL % Saturation (20-55) % Transferrin (202-364) mg/dL Ferritin (8-252) ng/ml Total Bilirubin 0.3 (0.2-1.0) mg/dL AST 15 (15-37) U/L ALT 20 (14-59) U/L Alkaline Phosphatase 52 (46-116) U/L C-Reactive Protein < 0.2 (<1.0) mg/dL NT-Pro-B Natriuret Pep 92 (0-125) pg/mL Total Protein 6.4 (6.4-8.2) g/dl Albumin 3.1 L (3.4-5.0) g/dl Globulin 3.3 gm/dL Albumin/Globulin Ratio 0.9 L (1-2) Blood Type Gel Antibody Screen Crossmatch 01/04/19 01/04/19 Range/Units 15:58 15:58 WBC (3.98-10.04) K/mm3 RBC (3.98-5.22) M/mm3 Hgb (11.2-15.7) gm/dl Hct (34.1-44.9) % MCV (79.4-94.8) fl MCH (25.6-32.2) pg MCHC (32.2-35.5) g/dl RDW Std Deviation (36.4-46.3) fL Plt Count (182-369) K/mm3 MPV (9.4-12.3) fl Neut % (Auto) (34.0-71.1) % Lymph % (Auto) (19.3-51.7) % [place] % (Auto) (4.7-12.5) % Eos % (Auto) (0.7-5.8) Baso % (Auto) (0.1-1.2) % Neut # (Auto) (1.56-6.13) K/mm3 Lymph # (Auto) (1.18-3.74) K/mm3 [place] # (Auto) (0.24-0.36) K/mm3 Eos # (Auto) (0.04-0.36) K/mm3 Baso # (Auto) (0.01-0.08) K/mm3 Manual Slide Review Sodium (136-145) mEq/L Potassium (3.5-5.1) mEq/L Chloride (98-107) mEq/L Carbon Dioxide (21-32) mEq/L Anion Gap (5-15) BUN (7-18) mg/dL Creatinine (0.55-1.02) mg/dL Est Cr Clr Drug Dosing mL/min Estimated GFR (MDRD) (>60) mL/min BUN/Creatinine Ratio (14-18) Glucose (74-106) mg/dL Calcium (8.5-10.1) mg/dL Magnesium (1.8-2.4) mg/dl Iron 35 L (50-170) ug/dL TIBC 286 (100-400) ug/dL % Saturation 12 L (20-55) % Transferrin 229 (202-364) mg/dL Ferritin 106 (8-252) ng/ml Total Bilirubin (0.2-1.0) mg/dL AST (15-37) U/L ALT (14-59) U/L Alkaline Phosphatase (46-116) U/L C-Reactive Protein (<1.0) mg/dL NT-Pro-B Natriuret Pep (0-125) pg/mL Total Protein (6.4-8.2) g/dl Albumin (3.4-5.0) g/dl Globulin gm/dL Albumin/Globulin Ratio (1-2) Blood Type O NEGATIVE Gel Antibody Screen Negative Crossmatch See Detail Result Diagrams: 01/04/19 15:20 01/04/19 15:58 Imaging Impressions Last 24 hrs: Transvaginal ultrasound Findings: Uterus is anteverted. The endometrium is slightly heterogeneous and is increased in thickness at 2.6 cm. There is a fundal fibroid being noted which measures 2.7 cm in greatest measurement. No additional myometrial abnormality is identified. Next and right ovary shows a 2.0 cm simple cyst which is felt to be physiologic. The left ovary shows a hypoechoic area most likely due to collapsing hemorrhagic cyst measuring 2.8 cm. No free fluid seen. Measurements Uterus: Length 11.7 cm, AP height 6.5 cm, transverse with 6.3 cm Right ovary: 3.2 x 2.1 x 2.2 cm Left ovary: 4.1 x 2.8 x 3.0 cm Impression: 1. Heterogeneous endometrial stripe with increased thickness at 2.6 and a venous 2. Hypoechoic area within the left ovary measuring 2.8 cm. As mentioned above , this most likely represents a collapsing hemorrhagic cyst although given the patient's age, recommend repeat study in 3-4 months to make sure this finding resolves. 3. A small fundal fibroid. EKG INTERPRETATION EKG Interpretation Comments: ECG: Normal sinus rhythm with ventricular rate of 75 bpm. Normal axis without deviation. Poor R-wave progression but otherwise normal ECG. Problem List Initiated/Reviewed/Updated: Yes Orders Last 24hrs: Active Orders 24 hr Category Date Time Status Admission Status [Patient Status] [ADT] Routine ADT 01/04/19 17:22 Active EKG Documentation Completion [RC] STAT Care 01/04/19 15:10 Active Notify Provider Consults [RC] ASDIRECTED Care 01/04/19 18:55 Active Oxygen Therapy [RC] PRN Care 01/04/19 20:15 Ordered RT Aerosol Therapy [RC] ASDIRECTED Care 01/04/19 15:10 Active Up ad Latoya [RC] ASDIRECTED Care 01/04/19 20:15 Ordered VTE/DVT Education [RC] PER UNIT ROUTINE Care 01/04/19 20:15 Ordered Vital Signs [RC] ASDIRECTED Care 01/04/19 20:15 Ordered Consult to Physician [CONS] Routine Cons 01/04/19 18:51 Active Regular Diet [DIET] Diet 01/04/19 Dinner Ordered CBC WITH AUTO DIFF [HEME] AM Lab 01/05/19 05:11 Ordered COMPREHENSIVE METABOLIC PN,CMP [CHEM] AM Lab 01/05/19 05:11 Ordered MAGNESIUM [CHEM] AM Lab 01/05/19 05:11 Ordered PACKED CELLS [RED BLOOD CELLS LP] [BBK] Stat Lab 01/04/19 15:58 Results TYPE AND SCREEN [BBK] Stat Lab 01/04/19 15:58 Results Acetaminophen [Tylenol] Med 01/04/19 20:15 Ordered 650 mg PO Q4H PRN Dextrose 5%-0.9% NaCl [Dextrose 5%-Normal Saline] 1,000 Med 01/04/19 15:15 Active ml IV ASDIRECTED Escitalopram Med 01/05/19 09:00 Ordered 20 mg PO DAILY Ondansetron [Zofran] Med 01/04/19 20:15 Ordered 4 mg IV Q4H PRN Sodium Chloride 0.9% [Normal Saline] 250 ml Med 01/04/19 18:00 Active IV ASDIRECTED Temazepam [Restoril] Med 01/04/19 20:15 Ordered 7.5 mg PO BEDTIME PRN medroxyPROGESTERone [Provera] Med 01/04/19 21:00 Active 10 mg PO BID Transfuse PRBC [Transfuse Red Blood Cells] [COMM] Stat Oth 01/04/19 16:44 Ordered Resuscitation Status Routine Resus Stat 01/04/19 19:04 Ordered Medication Orders Acetaminophen (Tylenol) 650 mg PO Q4H PRN PRN Reason: Pain (Mild 1-3)/fever Citalopram Hydrobromide (Celexa) 40 mg PO DAILY [facility] Dextrose/Sodium Chloride (Dextrose 5%-Normal Saline) 1,000 mls @ 500 mls/hr IV ASDIRECTED [facility] Last Admin: 01/04/19 15:22 Dose: 500 mls/hr Sodium Chloride (Normal Saline) 250 mls @ 25 mls/hr IV ASDIRECTED [facility] Medroxyprogesterone Acetate (Provera) 10 mg PO BID [facility] Ondansetron HCl (Zofran) 4 mg IV Q4H PRN PRN Reason: Nausea/Vomiting Temazepam (Restoril) 7.5 mg PO BEDTIME PRN PRN Reason: Sleep Assessment/Plan Comment:: Assessment * 53-year-old perimenopausal female with poorly controlled ITP presents to the emergency room with significant blood loss anemia. * HB 5.0 * Menorrhagia * ITP - platelets 21,000 * Non compliance with eltrombopag per hematology Plan * Refer to Medical floor for observation * Give 3 units PRBC overnight and recheck CBC in the AM * Dr. Ellington in [facility] consulted. * Recommendations: * Patient with symptomatic anemia with a hemoglobin of 5.0 in the setting of abnormal uterine bleeding with menorrhagia and dysmenorrhea. * Patient is likely in a perimenopausal state given her irregular menstrual cycles that are occurring every other month at ths time. * Patient is being admitted for blood transfusion given her significant symptomatic anemia * Patient had transvaginal ultrasound done today that showed uterine fibroid measuring 2.7 cm in greatest diameter. It is possible that this could be causing her abnormal bleeding. Patient also had thickened endometrial stripe at 2.6 cm. * Due to thickened endometrial stripe patient will need a endometrial biopsy and recommended for this to be done as an outpatient. Patient reports that she is also not had a Pap smear performed in a number of years and would recommend for this to be done at that time as well. * Patient should be treated with Provera 10 mg orally twice daily and could consider increasing dose to 20 mg orally twice daily to control her bleeding. Due to patient's history of tobacco use with 0.5 PPD at this time I would not recommend use of estrogen or estrogen containing medications due to increased risk of DVT. * Discussed with patient that because of this fibroid her options for control may be somewhat limited. Discussed that options could include ongoing hormonal management versus endometrial ablation versus definitive surgical management with hysterectomy. 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 Patient could consider also having a uterine artery embolization however this procedure would not be able to be performed at our facility. Patient would likely need to have her hysterectomy performed at a facility with higher acuity care and larger blood bank available because of her thrombocytopenia as well. * No acute treatment for ITP * Consider IV iron in the AM * Continue home meds * Full code. - Mortality Measure Prognosis:: Good
[2019-01-04] MEDS: Acetaminophen 325 MG Tab PO PRN (21:24)
[2019-01-05 02:40] VITALS: BP 135/99; PULSE 69
--- NOTE | 2019-01-05 08:30 | PCM.DCSUM1 ---
Discharge Summary - Hospital Course Brief History: 53-year-old perimenopausal female with a history of ITP treated with eltrombopag in the past presents to the emergency room with complaints of chest burning, increased fatigue, weakness, and headache over the last week. Today it worsened and she developed palpitations and shortness of breath. She was unable to stand and [place] is a fatigue and had difficulty walking through the store for 5 minutes. Last menstrual period started 12/19/2018. She states she has been on her menstrual cycle for approximately 2-1/2 weeks and it has been unusually heavy. She is changing a regular tampon every 20-30 minutes is also passing large blood clots. She also has had increasing cramping and bleeding as well. She has had some decreased bleeding today and has only gone through a tampon every 2-4 hours. She is only had a menstrual cycle approximately 3 times over the last 6 months in the previous 2 cycles were normal and last approximately 1 week. She has not been evaluated by [employer] MA[employer]IST. In the emergency room she was found to have a hemoglobin of 5.0. Her platelet count was 21,000. I spoke with Dr. Hassan her compliance review officer who stated that that is not a bad platelet count for her since she has been off of her eltrombopag. She states that a couple of months ago her platelet count was 14,000. Other pertinent positives were magnesium 1.5, iron 35, percent saturation 12, total iron binding capacity of 286. She had a pelvic ultrasound performed and the first unit of blood was started. Diagnosis: Stroke: No - Discharge Data Discharge Date: 01/05/19 Discharge Disposition: Home, Self-Care 01 Condition: Good - Referral to Home Health Primary Care Physician: PCP None - Patient Summary/Data Consults: Consultations 01/04/19 18:51 Consult to Physician [CONS] Routine Hospital Course: Given 3 units PRBC overnight and hemoglobin increased to 8.2 * Dr. Ellington in [employer] consulted. * Recommendations: * Patient with symptomatic anemia with a hemoglobin of 5.0 in the setting of abnormal uterine bleeding with menorrhagia and dysmenorrhea. * Patient is likely in a perimenopausal state given her irregular menstrual cycles that are occurring every other month at ths time. * Patient is being admitted for blood transfusion given her significant symptomatic anemia * Patient had transvaginal ultrasound done today that showed uterine fibroid measuring 2.7 cm in greatest diameter. It is possible that this could be causing her abnormal bleeding. Patient also had thickened endometrial stripe at 2.6 cm. * Due to thickened endometrial stripe patient will need a endometrial biopsy and recommended for this to be done as an outpatient. Patient reports that she is also not had a Pap smear performed in a number of years and would recommend for this to be done at that time as well. * Patient should be treated with Provera 10 mg orally twice daily and could consider increasing dose to 20 mg orally twice daily to control her bleeding. Due to patient's history of tobacco use with 0.5 PPD at this time I would not recommend use of estrogen or estrogen containing medications due to increased risk of DVT. * Discussed with patient that because of this fibroid her options for control may be somewhat limited. Discussed that options could include ongoing hormonal management versus endometrial ablation versus definitive surgical management with hysterectomy. 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 Patient could consider also having a uterine artery embolization however this procedure would not be able to be performed at our facility. Patient would likely need to have her hysterectomy performed at a facility with higher acuity care and larger blood bank available because of her thrombocytopenia as well. * No acute treatment for ITP - stable at 23,000 - Patient Instructions Diet: Usual Diet as Tolerated Activity: As Tolerated Driving: May Drive Today Showering/Bathing: May Shower Other/Special Instructions: Follow up with PCP in the next 2 days for a hemoglobin level. Follow up with Dr. Ellington on Thursday. - Discharge Plan *PRESCRIPTION DRUG MONITORING PROGRAM REVIEWED*: Not Applicable *COPY OF PRESCRIPTION DRUG MONITORING REPORT IN PATIENT LISSET: Not Applicable Prescriptions/Med Rec: Ferrous Sulfate 325 mg PO BIDMEALS #90 tab medroxyPROGESTERone [Provera] 10 mg PO BID #10 tablet Home Medications: Home Meds Escitalopram [Lexapro] 20 mg PO DAILY 01/23/18 [History] Multivitamin with Minerals [Multiple Vitamin] 1 tab PO DAILY 01/04/19 [History] Ferrous Sulfate 325 mg PO BIDMEALS #90 tab 01/05/19 [Rx] medroxyPROGESTERone [Provera] 10 mg PO BID #10 tablet 01/05/19 [Rx] Forms: ED Department Discharge Referrals: PCP,None [Primary Care Provider] - - Discharge Summary/Plan Comment DC Time >30 min.: Yes Discharge Summary/Plan Comment: patient will increase her iron to 3 times a day with vitamin C. Provera 10 mg twice a day for 5 more days. Follow-up for hemoglobin in the next 2 days. Follow-up with Dr. Ellington early next week to discuss definitive treatment of perimenopausal bleeding. - General Info Date of Service: 01/05/19 Admission Dx/Problem (Free Text: Admission Diagnosis/Problem Admission Diagnosis/Problem Perimenopausal menorrhagia Subjective Update: patient is feeling well. She denies any chest pain, shortness of breath, or dizziness. she states that she only has minimal bleeding vaginally today. - Review of Systems General: Reports: No Symptoms HEENT: Reports: No Symptoms Pulmonary: Reports: No Symptoms Cardiovascular: Reports: No Symptoms Gastrointestinal: Reports: No Symptoms - Patient Data Vitals - Most Recent: Last Vital Signs Temp 98.4 F 01/05/19 02:40 Pulse 69 01/05/19 02:40 Resp 16 01/05/19 02:40 BP 135/99 H 01/05/19 02:40 Pulse Ox 97 01/05/19 02:40 Weight - Most Recent: 184 lb 4.8 oz I&O - Last 24 hours: Intake & Output 01/04/19 01/05/19 01/05/19 22:59 06:59 14:59 Intake Total 460 2027 Output Total 800 Balance 460 1227 Lab Results - Last 24 hrs: Laboratory Results - last 24 hr 01/04/19 01/04/19 01/04/19 Range/Units 15:20 15:20 15:58 WBC 6.69 (3.98-10.04) K/mm3 RBC 1.56 L (3.98-5.22) M/mm3 Hgb 5.0 L* D (11.2-15.7) gm/dl Hct 17.0 L (34.1-44.9) % MCV 109.0 H D (79.4-94.8) fl MCH 32.1 (25.6-32.2) pg MCHC 29.4 L (32.2-35.5) g/dl RDW Std Deviation 67.1 H (36.4-46.3) fL Plt Count 21 L* (182-369) K/mm3 MPV 12.4 H (9.4-12.3) fl Neut % (Auto) 76.8 H (34.0-71.1) % Lymph % (Auto) 15.2 L (19.3-51.7) % [place] % (Auto) 7.5 (4.7-12.5) % Eos % (Auto) 0.1 L (0.7-5.8) Baso % (Auto) 0.1 (0.1-1.2) % Neut # (Auto) 5.13 (1.56-6.13) K/mm3 Lymph # (Auto) 1.02 L (1.18-3.74) K/mm3 [place] # (Auto) 0.50 H (0.24-0.36) K/mm3 Eos # (Auto) 0.01 L (0.04-0.36) K/mm3 Baso # (Auto) 0.01 (0.01-0.08) K/mm3 Manual Slide Review Abnormal smear Sodium 136 (136-145) mEq/L Potassium 3.9 (3.5-5.1) mEq/L Chloride 103 (98-107) mEq/L Carbon Dioxide 22 (21-32) mEq/L Anion Gap 14.9 (5-15) BUN 9 (7-18) mg/dL Creatinine 1.0 (0.55-1.02) mg/dL Est Cr Clr Drug Dosing 59.89 mL/min Estimated GFR (MDRD) 58 (>60) mL/min BUN/Creatinine Ratio 9.0 L (14-18) Glucose 122 H (74-106) mg/dL Calcium 8.4 L (8.5-10.1) mg/dL Magnesium 1.5 L (1.8-2.4) mg/dl Iron (50-170) ug/dL TIBC (100-400) ug/dL % Saturation (20-55) % Transferrin (202-364) mg/dL Ferritin (8-252) ng/ml Total Bilirubin 0.3 (0.2-1.0) mg/dL AST 15 (15-37) U/L ALT 20 (14-59) U/L Alkaline Phosphatase 52 (46-116) U/L C-Reactive Protein < 0.2 (<1.0) mg/dL NT-Pro-B Natriuret Pep 92 (0-125) pg/mL Total Protein 6.4 (6.4-8.2) g/dl Albumin 3.1 L (3.4-5.0) g/dl Globulin 3.3 gm/dL Albumin/Globulin Ratio 0.9 L (1-2) Blood Type Gel Antibody Screen Crossmatch 01/04/19 01/04/19 01/05/19 Range/Units 15:58 15:58 04:06 WBC 7.00 (3.98-10.04) K/mm3 RBC 2.66 L (3.98-5.22) M/mm3 Hgb 8.2 L D (11.2-15.7) gm/dl Hct 26.4 L (34.1-44.9) % MCV 99.2 H (79.4-94.8) fl MCH 30.8 (25.6-32.2) pg MCHC 31.1 L (32.2-35.5) g/dl RDW Std Deviation 56.4 H (36.4-46.3) fL Plt Count 23 L* (182-369) K/mm3 MPV 12.1 (9.4-12.3) fl Neut % (Auto) 77.3 H (34.0-71.1) % Lymph % (Auto) 14.6 L (19.3-51.7) % [place] % (Auto) 7.3 (4.7-12.5) % Eos % (Auto) 0.4 L (0.7-5.8) Baso % (Auto) 0.1 (0.1-1.2) % Neut # (Auto) 5.41 (1.56-6.13) K/mm3 Lymph # (Auto) 1.02 L (1.18-3.74) K/mm3 [place] # (Auto) 0.51 H (0.24-0.36) K/mm3 Eos # (Auto) 0.03 L (0.04-0.36) K/mm3 Baso # (Auto) 0.01 (0.01-0.08) K/mm3 Manual Slide Review Abnormal smear Sodium (136-145) mEq/L Potassium (3.5-5.1) mEq/L Chloride (98-107) mEq/L Carbon Dioxide (21-32) mEq/L Anion Gap (5-15) BUN (7-18) mg/dL Creatinine (0.55-1.02) mg/dL Est Cr Clr Drug Dosing mL/min Estimated GFR (MDRD) (>60) mL/min BUN/Creatinine Ratio (14-18) Glucose (74-106) mg/dL Calcium (8.5-10.1) mg/dL Magnesium (1.8-2.4) mg/dl Iron 35 L (50-170) ug/dL TIBC 286 (100-400) ug/dL % Saturation 12 L (20-55) % Transferrin 229 (202-364) mg/dL Ferritin 106 (8-252) ng/ml Total Bilirubin (0.2-1.0) mg/dL AST (15-37) U/L ALT (14-59) U/L Alkaline Phosphatase (46-116) U/L C-Reactive Protein (<1.0) mg/dL NT-Pro-B Natriuret Pep (0-125) pg/mL Total Protein (6.4-8.2) g/dl Albumin (3.4-5.0) g/dl Globulin gm/dL Albumin/Globulin Ratio (1-2) Blood Type O NEGATIVE Gel Antibody Screen Negative Crossmatch See Detail 01/05/19 Range/Units 04:06 WBC (3.98-10.04) K/mm3 RBC (3.98-5.22) M/mm3 Hgb (11.2-15.7) gm/dl Hct (34.1-44.9) % MCV (79.4-94.8) fl MCH (25.6-32.2) pg MCHC (32.2-35.5) g/dl RDW Std Deviation (36.4-46.3) fL Plt Count (182-369) K/mm3 MPV (9.4-12.3) fl Neut % (Auto) (34.0-71.1) % Lymph % (Auto) (19.3-51.7) % [place] % (Auto) (4.7-12.5) % Eos % (Auto) (0.7-5.8) Baso % (Auto) (0.1-1.2) % Neut # (Auto) (1.56-6.13) K/mm3 Lymph # (Auto) (1.18-3.74) K/mm3 [place] # (Auto) (0.24-0.36) K/mm3 Eos # (Auto) (0.04-0.36) K/mm3 Baso # (Auto) (0.01-0.08) K/mm3 Manual Slide Review Sodium 138 (136-145) mEq/L Potassium 3.5 (3.5-5.1) mEq/L Chloride 106 (98-107) mEq/L Carbon Dioxide 22 (21-32) mEq/L Anion Gap 13.5 (5-15) BUN 8 (7-18) mg/dL Creatinine 0.8 (0.55-1.02) mg/dL Est Cr Clr Drug Dosing 74.86 mL/min Estimated GFR (MDRD) > 60 (>60) mL/min BUN/Creatinine Ratio 10.0 L (14-18) Glucose 98 (74-106) mg/dL Calcium 7.5 L (8.5-10.1) mg/dL Magnesium 2.3 (1.8-2.4) mg/dl Iron (50-170) ug/dL TIBC (100-400) ug/dL % Saturation (20-55) % Transferrin (202-364) mg/dL Ferritin (8-252) ng/ml Total Bilirubin 0.3 (0.2-1.0) mg/dL AST 14 L (15-37) U/L ALT 17 (14-59) U/L Alkaline Phosphatase 52 (46-116) U/L C-Reactive Protein (<1.0) mg/dL NT-Pro-B Natriuret Pep (0-125) pg/mL Total Protein 5.8 L (6.4-8.2) g/dl Albumin 2.8 L (3.4-5.0) g/dl Globulin 3.0 gm/dL Albumin/Globulin Ratio 0.9 L (1-2) Blood Type Gel Antibody Screen Crossmatch Med Orders - Current: Current Medications Acetaminophen (Tylenol) 650 mg PO Q4H PRN PRN Reason: Pain (Mild 1-3)/fever Last Admin: 01/04/19 21:24 Dose: 650 mg Citalopram Hydrobromide (Celexa) 40 mg PO DAILY RHIANNON Sodium Chloride (Normal Saline) 250 mls @ 25 mls/hr IV ASDIRECTED [facility] Medroxyprogesterone Acetate (Provera) 10 mg PO BID [facility] Last Admin: 01/04/19 21:24 Dose: 10 mg Ondansetron HCl (Zofran) 4 mg IV Q4H PRN PRN Reason: Nausea/Vomiting Temazepam (Restoril) 7.5 mg PO BEDTIME PRN PRN Reason: Sleep Last Admin: 01/04/19 21:24 Dose: 7.5 mg Discontinued Medications Albuterol/Ipratropium (Duoneb 3.0-0.5 Mg/3 Ml) 3 ml NEB ONETIME ONE Stop: 01/04/19 15:11 Last Admin: 01/04/19 15:37 Dose: 3 ml Dextrose/Sodium Chloride (Dextrose 5%-Normal Saline) 1,000 mls @ 500 mls/hr IV ASDIRECTED [facility] Last Admin: 01/04/19 15:22 Dose: 500 mls/hr Magnesium Sulfate 2 gm/ Premix 50 mls @ 25 mls/hr IV Q1H [facility] Stop: 01/04/19 19:29 Last Admin: 01/04/19 20:48 Dose: 25 mls/hr - Exam General: Reports: Alert, Oriented HEENT: Reports: Pupils Equal, Pupils Reactive, EOMI, Mucous Membr. Moist/[place] Neck: Reports: Supple Lungs: Reports: Clear to Auscultation Cardiovascular: Reports: Regular Rate, Regular Rhythm GI/Abdominal Exam: Normal Bowel Sounds, Soft, Non-Tender
[2019-01-05] MEDS ORDERED: Citalopram 20 MG Tab PO SCH (09:00)
[2019-01-05] MEDS: Acetaminophen 325 MG Tab PO PRN (10:25)
== END 2019-01-05 10:50 | disposition home or self-care (01) ==
LOC: JD.ED 14:52 → JD.MS 17:22
PROVIDERS: ADMIT Family Medicine; ATTEND Family Medicine
DX: D50.0 Iron deficiency anemia secondary to blood loss (chronic) (principal); D69.3 Immune thrombocytopenic purpura; N92.4 Excessive bleeding in the premenopausal period; D25.9 Leiomyoma of uterus, unspecified; F41.9 Anxiety disorder, unspecified; F17.210 Nicotine dependence, cigarettes, uncomplicated; Z91.018 Allergy to other foods
CPT/HCPCS: 36415; 71045; 76830; 80053; 82728; 83540; 83735; 83880; 84466; 85025; 86140; 93005; 94640; 96361; 96365; 96366; 99285; A9270; G0378; J3475; J7042; P9016; 36430; 86850; 86900; 86901; 86922; 93010; J7620-GY

== ENCOUNTER 2020-04-02 10:59 | Emergency (ER) | payer BC, OTHER ==
[2020-04-02 11:14] VITALS: BP 124/63; PULSE 85
[2020-04-02] MEDS ORDERED: Sodium Chloride 0.9% 1,000 ML IV ONE (11:24)
--- NOTE | 2020-04-02 11:34 | EDM.PDOC ---
ED HPI GENERAL MEDICAL PROBLEM - General Chief Complaint: [employer]OR [employer]NERSHIPS Problem Stated Complaint: HEAVY VAGINAL BLEEDING, HEADACHE, RAPID HEART RATE Time Seen by Provider: 04/02/20 11:15 Source of Information: Reports: Patient History Limitations: Reports: No Limitations - History of Present Illness INITIAL COMMENTS - FREE TEXT/NARRATIVE: 54-year-old female presents to the emergency department complaints of heavy vaginal bleeding x10 days. Patient states that prior to 10 days ago she had not had a period since December for which she was hospitalized due to heavy vaginal bleeding and hemoglobin of 5. Patient states that she has had vaginal bleeding x10 days which over the course the last 3 days is decreasing, however prior to that she had been going through 2-3 tampons every hour and was passing clots as big as the size of a baseball. Patient states she has become more short of breath, even unable to ambulate up a flight of stairs without having chest pressure and dizziness feeling like her legs are going to give out. She states she did follow-up with Dr. Ding after previous hospitalization but did not elaborate anymore on that. Onset: Gradual - Related Data Allergies Allergy/AdvReac Type Severity Reaction Status Date / Time almond Allergy Hives Verified 04/02/20 11:14 poppyseed oil Allergy Hives Verified 04/02/20 11:14 Home Meds: Home Meds Escitalopram [Lexapro] 20 mg PO DAILY 01/23/18 [History] Multivitamin with Minerals [Multiple Vitamin] 1 tab PO DAILY 01/04/19 [History] Past Medical History Respiratory History: Reports: Bronchitis, Recurrent Other [employer] History: tubes tied, normal , abnormal periods entire life Musculoskeletal History: Reports: Back Pain, Chronic Other Musculoskeletal History: left hand surgery Psychiatric History: Reports: Anxiety Hematologic History: Reports: Anemia, Other (See Below) Other Hematologic History: thrombocytopennia - Infectious Disease History Infectious Disease History: Reports: Chicken Pox - Past Surgical History GI Surgical History: Reports: Colonoscopy Female Surgical History: Reports: Tubal Ligation, Other (See Below) Other Female Surgeries/Procedures: colposcopy Social & Family History - Family History Family Medical History: No Pertinent Family History - Tobacco Use Tobacco Use Status *Q: Current Every Day Tobacco User Years of Tobacco use: 35 Packs/Tins Daily: 0.5 - Caffeine Use Caffeine Use: Reports: Coffee, Soda Other Caffeine Use: 1 cup/day - Recreational Drug Use Recreational Drug Use: No - Living Situation & Occupation Living situation: Reports: Occupation: Employed ED ROS GENERAL - Review of Systems Review Of Systems: See Below Constitutional: Reports: No Symptoms HEENT: Reports: No Symptoms Respiratory: Reports: Shortness of Breath. Denies: Wheezing, Cough, Sputum Cardiovascular: Reports: Chest Pain (When ambulating up the stairs.), Dyspnea on Exertion, Lightheadedness (With ambulation). Denies: Edema, Syncope Endocrine: Reports: No Symptoms GI/Abdominal: Reports: No Symptoms : Reports: Irregular Menses (Heavy vaginal bleeding) Musculoskeletal: Reports: No Symptoms Skin: Reports: Pallor Neurological: Reports: No Symptoms Psychiatric: Reports: No Symptoms Hematologic/Lymphatic: Reports: No Symptoms Immunologic: Reports: No Symptoms ED EXAM, RENAL/ - Physical Exam Exam: See Below Exam Limited By: No Limitations General Appearance: Alert, WD/WN, No Apparent Distress Eye Exam: Bilateral Eye: PERRL, Other (conjunctival pallor) Ears: Normal External Exam Nose: Normal Inspection Throat/Mouth: Normal Inspection, No Airway Compromise. No: Normal Voice (raspy ) Head: Atraumatic, Normocephalic Neck: Normal Inspection, Supple, Non-Tender, Full Range of Motion Respiratory/Chest: No Respiratory Distress, Lungs Clear, Normal Breath Sounds, No Accessory Muscle Use, Chest Non-Tender Cardiovascular: Normal Peripheral Pulses, Regular Rate, Rhythm, No Edema, No Murmur GI/Abdominal: Normal Bowel Sounds, Soft, Non-Tender, No Distention (Female) Exam: Deferred Rectal (Female) Exam: Deferred Back Exam: Normal Inspection, Full Range of Motion Extremities: Normal Inspection, Normal Range of Motion, Non-Tender, No Pedal Edema, Normal Capillary Refill Neurological: Alert, Oriented, Normal Cognition Psychiatric: Normal Affect, Normal Mood Skin Exam: Warm, Dry, Intact, No Rash (conjuncival pallor), Pallor Lymphatic: No Adenopathy #1 Interpretation EKG Date: 04/02/20 Time: 12:10 Rhythm: NSR Rate (Beats/Min): 68 [place]: Normal P-Wave: Present QRS: Normal ST-T: Normal QT: Normal Comparison: NA - No Prior EKG EKG Interpretation Comments: EKG interpretation per Dr. Preciado: Sinus rhythm at 68 bpm, initial R wave progression consider old anteroseptal wall IN, decreased voltage limb and precordial leads, T wave flattening in V3 and V4, minimal LAD. Course - Vital Signs Text/Narrative:: 54-year-old female with a history of heavy vaginal bleeding having 4 periods in the last 9 months all of which were heavy. She states at times she passes clots as large as a baseball. She states over the course the last 10 days she has been going through 2-3 tampons every hour though her flow has lightened over the last couple of days. She states she presents today with increased shortness of breath to the point where she cannot ambulate up an entire flight of stairs without feeling like she is going to pass out. Of note patient is a smoker, half pack per day x35+ years. Patient was recently hospitalized in December with a similar instance having a hemoglobin of 5.0. Dr. Ellington was consulted while she was in the hospital and started her on Provera 10 mg twice daily however she did not follow-up with an [employer] when she was discharged. Patient is orthostatic on presentation to the emergency department. I have ordered a CBC, CMP, EKG, type and screen, hCG, and a transvaginal ultrasound. I have also ordered a liter of normal saline wide open. Last Recorded V/S: Last Vital Signs Temp 98.0 F 04/02/20 11:08 Pulse 85 04/02/20 11:08 Resp 16 04/02/20 11:08 BP 124/63 04/02/20 11:08 Pulse Ox 97 04/02/20 11:08 - Orders/Labs/Meds Orders: Active Orders 24 hr Category Date Time Status EKG Documentation Completion [RC] STAT Care 04/02/20 11:24 Active CORONAVIRUS COVID-19 PCR PHL Stat Lab 04/02/20 13:33 Ordered Labs: Laboratory Tests 04/02/20 04/02/20 04/02/20 Range/Units 11:10 11:20 11:20 WBC (3.98-10.04) K/mm3 RBC (3.98-5.22) M/mm3 Hgb (11.2-15.7) gm/dl Hct (34.1-44.9) % MCV (79.4-94.8) fl MCH (25.6-32.2) pg MCHC (32.2-35.5) g/dl RDW Std Deviation (36.4-46.3) fL Plt Count (182-369) K/mm3 MPV (9.4-12.3) fl Neut % (Auto) (34.0-71.1) % Lymph % (Auto) (19.3-51.7) % [place] % (Auto) (4.7-12.5) % Eos % (Auto) (0.7-5.8) Baso % (Auto) (0.1-1.2) % Neut # (Auto) (1.56-6.13) K/mm3 Lymph # (Auto) (1.18-3.74) K/mm3 [place] # (Auto) (0.24-0.36) K/mm3 Eos # (Auto) (0.04-0.36) K/mm3 Baso # (Auto) (0.01-0.08) K/mm3 Manual Slide Review Sodium 138 (136-145) mEq/L Potassium 4.3 (3.5-5.1) mEq/L Chloride 102 (98-107) mEq/L Carbon Dioxide 25 (21-32) mEq/L Anion Gap 15.3 H (5-15) BUN 9 (7-18) mg/dL Creatinine 0.7 (0.55-1.02) mg/dL Est Cr Clr Drug Dosing 84.59 mL/min Estimated GFR (MDRD) > 60 (>60) mL/min BUN/Creatinine Ratio 12.9 L (14-18) Glucose 282 H (74-106) mg/dL Calcium 8.4 L (8.5-10.1) mg/dL Total Bilirubin 0.3 (0.2-1.0) mg/dL AST 23 (15-37) U/L ALT 23 (14-59) U/L Alkaline Phosphatase 57 (46-116) U/L Total Protein 6.7 (6.4-8.2) g/dl Albumin 3.2 L (3.4-5.0) g/dl Globulin 3.5 gm/dL Albumin/Globulin Ratio 0.9 L (1-2) HCG, Qual Negative (NEGATIVE) Blood Type O NEGATIVE Gel Antibody Screen Negative 04/02/20 Range/Units 11:32 WBC 5.40 (3.98-10.04) K/mm3 RBC 2.87 L (3.98-5.22) M/mm3 Hgb 9.4 L (11.2-15.7) gm/dl Hct 28.9 L (34.1-44.9) % MCV 100.7 H (79.4-94.8) fl MCH 32.8 H (25.6-32.2) pg MCHC 32.5 (32.2-35.5) g/dl RDW Std Deviation 50.4 H (36.4-46.3) fL Plt Count 13 L* (182-369) K/mm3 MPV 11.8 (9.4-12.3) fl Neut % (Auto) 71.3 H (34.0-71.1) % Lymph % (Auto) 19.4 (19.3-51.7) % [place] % (Auto) 8.0 (4.7-12.5) % Eos % (Auto) 0.7 (0.7-5.8) Baso % (Auto) 0.2 (0.1-1.2) % Neut # (Auto) 3.85 (1.56-6.13) K/mm3 Lymph # (Auto) 1.05 L (1.18-3.74) K/mm3 [place] # (Auto) 0.43 H (0.24-0.36) K/mm3 Eos # (Auto) 0.04 (0.04-0.36) K/mm3 Baso # (Auto) 0.01 (0.01-0.08) K/mm3 Manual Slide Review Abnormal smear Sodium (136-145) mEq/L Potassium (3.5-5.1) mEq/L Chloride (98-107) mEq/L Carbon Dioxide (21-32) mEq/L Anion Gap (5-15) BUN (7-18) mg/dL Creatinine (0.55-1.02) mg/dL Est Cr Clr Drug Dosing mL/min Estimated GFR (MDRD) (>60) mL/min BUN/Creatinine Ratio (14-18) Glucose (74-106) mg/dL Calcium (8.5-10.1) mg/dL Total Bilirubin (0.2-1.0) mg/dL AST (15-37) U/L ALT (14-59) U/L Alkaline Phosphatase (46-116) U/L Total Protein (6.4-8.2) g/dl Albumin (3.4-5.0) g/dl Globulin gm/dL Albumin/Globulin Ratio (1-2) HCG, Qual (NEGATIVE) Blood Type Gel Antibody Screen Meds: Medications Discontinued Medications Generic Name Dose Route Start Last Admin Trade Name Freq PRN Reason Stop Dose Admin Sodium Chloride 1,000 mls @ 999 mls/hr 04/02/20 11:24 04/02/20 12:08 Normal Saline IV 04/02/20 12:24 999 mls/hr ONETIME ONE Administration - Re-Assessments/Exams Free Text/Narrative Re-Assessment/Exam: 04/02/20 14:07 Labs reveal WBC 5.40, RBC 2.87, hemoglobin 9.4, hematocrit 28.9, MCV 100.7, platelet count 13, sodium 138, potassium 4.3, anion gap 15.3, glucose 282, calcium 8.4, hCG is negative Radiologist interpretation of pelvic ultrasound impression: 1. Hypoechoic area within the endometrial cavity either due to blood clot or endometrial polyp. 2. Septated cyst within the left ovary measuring 5.0 cm. Recommend follow-up pelvic ultrasound study in 6 months. Patient's platelet count is severely low, and she likely needs platelet transfusion, however we do not have platelets here in [place], and patient continues to have vaginal bleeding. Attempted to phone Dr. Hassan the patient's oncologist regarding her ITP however he is out of town. I did speak with BRADEN Viera, she states that the patient should have a platelet transfusion and she will notify him of her status when he returns to the clinic. I then phoned [facility] in [place] to have the patient transferred as she will also likely need surgery. Patient will be a direct admit to the emergency department with Dr. Redman accepting the patient's care. I notified the patient of this plan and she is agreeable to this. Departure - Departure Time of Disposition: 14:13 Disposition: DC/Tfer to [facility] Condition: Fair Clinical Impression: Vaginal bleeding, abnormal, Thrombocytopenia, Thrombocythemia, Perimenopausal menorrhagia - Discharge Information Referrals: Guillaume Ellington MD [Primary Care Provider] - Forms: ED Department Discharge Sepsis Event Note (ED) - Evaluation Sepsis Screening Result: No Definite Risk - Focused Exam Vital Signs: Vital Signs Temp Pulse Resp BP Pulse Ox 04/02/20 11:08 98.0 F 85 16 124/63 97 - My Orders Last 24 Hours: My Active Orders 04/02/20 11:24 EKG Documentation Completion [RC] STAT 04/02/20 13:33 CORONAVIRUS COVID-19 PCR PHL Stat - Assessment/Plan Last 24 Hours: My Active Orders 04/02/20 11:24 EKG Documentation Completion [RC] STAT 04/02/20 13:33 CORONAVIRUS COVID-19 PCR PHL Stat
--- NOTE | 2020-04-02 13:21 | US ---
Pelvic ultrasound: Multiple real-time images were obtained transvaginally. Uterus is anteverted. Hypoechoic area is seen within the endometrial cavity either due to blood clot or possible polyp. This finding measures approximately 1.5 cm in greatest dimension. Endometrial thickness in this area is thickened. Septated cyst is noted within the left ovary. This measures approximately 5.0 cm in greatest size. Other smaller follicle type areas are also seen within the left ovary. Right ovary appears within normal limits. No free fluid is seen. Measurements: Uterus: Length 10.2 cm, AP height 5.4 cm, transverse width 5.5 cm Right ovary: 2.2 x 1.5 x 1.5 cm Left ovary: 6.9 x 4.7 x 5.0 cm (includes cyst) Impression: 1. Hypoechoic area within the endometrial cavity either due to blood clot or endometrial polyp. 2. Septated cyst within the left ovary measuring 5.0 cm. Recommend follow-up pelvic ultrasound study in 6 months. Diagnostic code #3
== END 2020-04-02 14:15 ==
LOC: JD.ED 10:59
DX: N92.4 Excessive bleeding in the premenopausal period (principal); D47.3 Essential (hemorrhagic) thrombocythemia; F17.210 Nicotine dependence, cigarettes, uncomplicated; Z91.018 Allergy to other foods; Z79.899 Other long term (current) drug therapy; Z20.822 Contact with and (suspected) exposure to COVID-19
CPT/HCPCS: 36415; 76830; 80053; 84703; 85025; 86850; 86900; 86901; 87635; 93005; 99285; J7030; 93010; U0002

== ENCOUNTER 2023-11-21 14:51 | Emergency (ER) | payer OTHER | END 2023-11-21 15:42 | disposition left against medical advice (07) | LOC: JD.ED 14:51 | DX: Z53.21 Procedure and treatment not carried out due to patient leaving prior to being seen by health care provider (principal) ==